=== PATIENT | female | born 1985 | race African-American/Black ===

== ENCOUNTER 2018-07-31 18:09 | Emergency (ER) | payer OTHER ==
[~2018-07-31] VITALS: Ht 172.7 cm; Wt 99.8 kg
[~2018-07-31 18:09] MED LIST: AMOXICILLIN 50500 M1 PO; EMADINE5 ML OP; ERYTHROMYCIN E3.5 G1 OPHTHALMIC; TRINATE TABLET1 TAB PO; ULTRAM 50MG TAB50 MG PO
[2018-07-31 19:03] LABS: URINE BLOOD 3+ (Negative); URINE GLUCOSE-RANDOM* NEGATIVE (Negative); URINE KETONES 1+ (Negative); URINE LEUKOCYTES-REFLEX TRACE (Negative); URINE NITRITE-REFLEX NEGATIVE (Negative); URINE PROTEIN (DIPSTICK) 1+ (Negative); URINE SPECIFIC GRAVITY >= 1.030 (1.005-1.035); URINE UROBILINOGEN 0.2 E.U./dl (0.2-1.0)
[2018-07-31 19:03] LABS: ABSOLUTE NEUTROPHILS 6.6 thou/uL (1.4-8.2); BASOPHILS 0.2 % (0.0-2.0); HEMATOCRIT 36.8 % (37.0-47.0); HEMOGLOBIN 12.3 gm/dL (12.0-15.0); MCH 29.2 pg (26.0-34.0); MCHC 33.5 g/dL (28.0-37.0); MCV 87.2 fL (80.0-100.0); MONOCYTES 6.2 % (1.0-8.0); PLATELET COUNT 215 thou/uL (150-400); POLYS 72.6 % (36.0-66.0); RBC 4.22 mil/uL (4.20-5.00); RDW 14.8 % (10.5-14.5); WBC 9.1 thou/uL (4.0-11.0)
[2018-07-31 19:06] LABS: ICTOTEST (BILI CONFIRMATORY) Negative (Negative); URINE BILIRUBIN NEGATIVE (Negative); URINE CLARITY CLOUDY; URINE COLOR RED
[2018-07-31 19:09] LABS: CALCIUM 9.2 mg/dL (8.5-10.1); CREATININE 0.9 mg/dL (0.6-1.0); POTASSIUM 3.5 mmol/L (3.5-5.1)
[2018-07-31 19:28] LABS: BACTERIA-REFLEX 1-9 Few /HPF (None Seen); CASTS None Seen /LPF (None Seen); CRYSTALS None Seen /LPF (None Seen); SQUAMOUS 0-3 Few /LPF (0-3); URINE RBC >20 Many /HPF (0-2); URINE WBC-REFLEX 0-5 Rare /HPF (0-5)
[2018-07-31 21:52] VITALS: BP 120/75
== END 2018-07-31 21:54 | disposition home or self-care (01) ==
LOC: ER 18:09
PROVIDERS: Emergency Medicine
DX: O03.4 Incomplete spontaneous abortion without complication (principal); O26.899 Other specified pregnancy related conditions, unspecified trimester; R55 Syncope and collapse; Z3A.00 Weeks of gestation of pregnancy not specified

== ENCOUNTER 2018-08-14 08:45 | Emergency (ER) | payer OTHER ==
[~2018-08-14] VITALS: Ht 172.7 cm; Wt 104.3 kg
[2018-08-14] MEDS ORDERED: CAMILA0.35 MG PO (08:53)
[2018-08-14] MEDS ORDERED: KEFLEX500 M1 PO (10:37)
[2018-08-14] MEDS ORDERED: MOBIC15 MG PO (10:39)
[2018-08-14 10:42] VITALS: BP 108/65
== END 2018-08-14 10:41 | disposition home or self-care (01) ==
LOC: ER 08:45
DX: N75.1 Abscess of Bartholin's gland (principal)

== ENCOUNTER 2019-11-01 11:34 | Emergency (ER) | payer OTHER ==
[~2019-11-01] VITALS: Ht 172.7 cm; Wt 108.9 kg
[2019-11-01 11:34] VITALS: BP 151/100
[~2019-11-01 11:34] MED LIST changes: +CAMILA0.35 MG PO; +KEFLEX500 M1 PO; +MOBIC15 MG PO
[2019-11-01 11:55] LABS: URINE BILIRUBIN NEGATIVE (Negative); URINE BLOOD NEGATIVE (Negative); URINE CLARITY CLEAR; URINE COLOR YELLOW; URINE GLUCOSE-RANDOM* NEGATIVE (Negative); URINE KETONES NEGATIVE (Negative); URINE LEUKOCYTES-REFLEX NEGATIVE (Negative); URINE NITRITE-REFLEX NEGATIVE (Negative); URINE PROTEIN (DIPSTICK) NEGATIVE (Negative); URINE UROBILINOGEN 0.2 E.U./dl (0.2-1.0)
== END 2019-11-01 12:52 | disposition home or self-care (01) ==
LOC: ER 11:34
PROVIDERS: Nurse Practitioner
DX: R30.0 Dysuria (principal)